=== PATIENT | male | born 1960 | race Caucasian/White ===

== ENCOUNTER 2018-11-11 18:42 | Emergency (ER) | payer MEDICAID ==
--- NOTE | 2018-11-11 19:11 | EDM.PDOC ---
ED HPI GENERAL MEDICAL PROBLEM - General Chief Complaint: Drug or Alcohol Abuse Stated Complaint: MEDICAL [facility]IA [facility] Time Seen by Provider: 11/11/18 19:00 Source of Information: Reports: Patient, EMS, Old Records History Limitations: Reports: No Limitations - History of Present Illness INITIAL COMMENTS - FREE TEXT/NARRATIVE: 58 yo male called an ambulance today for a ride to the ER so he could be cleared for detox. Has been through detox about 30 times he says. Drinks about a half a gallon of vodka daily. Drank last today. Lives alone. 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: Other (see below) (none) denies Pain Score (Numeric/FACES): 0 - Related Data Allergies Allergy/AdvReac Type Severity Reaction Status Date / Time erythromycin base AdvReac Vomiting Verified 11/11/18 19:15 lorazepam [From Ativan] AdvReac Nausea and Verified 11/11/18 19:15 Vomiting Home Meds: Home Meds Adalimumab [Humira] 40 mg SQ Q14D 09/22/14 [History] Ondansetron [Zofran] 4 mg PO Q8H PRN 09/22/14 [History] Triamcinolone Acetonide [Kenalog 0.1% Crm] 1 applic TP BID PRN 09/22/14 [History ] Cyanocobalamin (Vitamin B-12) [Vitamin B-12] 1,000 mcg SL DAILY 06/06/15 [ History] Magnesium Hydroxide [Milk of Magnesia] 30 ml PO DAILY PRN #2 ml 06/08/15 [Rx] Gabapentin [Neurontin] 800 mg PO TID 11/11/18 [History] Past Medical History HEENT History: Reports: Impaired Vision Cardiovascular History: Reports: Hypertension Other Cardiovascular History: pre-RNY Respiratory History: Reports: Pneumonia, Recurrent Genitourinary History: Reports: Renal Calculus, Other (See Below) Other Genitourinary History: vasectomy Musculoskeletal History: Reports: Arthritis, Back Pain, Chronic, Other (See Below) Other Musculoskeletal History: psoriatic Neurological History: Reports: Neuropathy, Diabetic Psychiatric History: Reports: Depression Endocrine/Metabolic History: Reports: Diabetes, Type II, Vitamin D Deficiency Other Endocrine/Metabolic History: pre-RNY Hematologic History: Reports: B12 Deficiency, Folic Acid, Iron Deficiency Dermatologic History: Reports: Psoriasis - Infectious Disease History Infectious Disease History: Reports: MRSA, Mumps - Past Surgical History GI Surgical History: Reports: Bariatric Procedure, Hernia, Inguinal, Other (See Below) ED ROS GENERAL - Review of Systems Review Of Systems: See Below Constitutional: Reports: No Symptoms HEENT: Reports: No Symptoms Respiratory: Reports: No Symptoms Cardiovascular: Reports: No Symptoms GI/Abdominal: Reports: No Symptoms : Reports: No Symptoms Musculoskeletal: Reports: No Symptoms Skin: Reports: No Symptoms Neurological: Reports: Other (intoxication) Psychiatric: Reports: No Symptoms ED EXAM, GENERAL - Physical Exam Exam: See Below Exam Limited By: Intoxication General Appearance: Alert, WD/WN, No Apparent Distress Eye Exam: Bilateral Eye: Normal Inspection Ears: Normal External Exam, Normal Canal, Hearing Grossly Normal Ear Exam: Bilateral Ear: Auricle Normal, Canal Normal Nose: Normal Inspection, Normal Mucosa, No Blood Throat/Mouth: Normal Inspection, Normal Lips, Normal Oropharynx, Normal Voice, No Airway Compromise Head: Atraumatic, Normocephalic Neck: Normal Inspection Respiratory/Chest: No Respiratory Distress, Lungs Clear, Normal Breath Sounds, No Accessory Muscle Use Cardiovascular: Regular Rate, Rhythm, No Edema GI/Abdominal: Normal Bowel Sounds, Soft, Non-Tender, No Distention Back Exam: Normal Inspection. No: CVA Tenderness (R), CVA Tenderness (L) Extremities: Normal Inspection, Normal Range of Motion, Non-Tender, No Pedal Edema Neurological: Alert, Oriented, CN II-XII Intact, Normal Cognition, No Motor/ Sensory Deficits Psychiatric: Normal Affect, Normal Mood Skin Exam: Warm, Dry, Intact, Normal Color, No Rash Course - Vital Signs Last Recorded V/S: Last Vital Signs Temp 35.5 C 11/11/18 19:09 Pulse 83 11/11/18 19:09 Resp 16 11/11/18 19:09 BP 136/76 11/11/18 19:09 Pulse Ox 97 11/11/18 19:09 - Orders/Labs/Meds Labs: Laboratory Tests 11/11/18 11/11/18 Range/Units 19:04 19:32 Urine Opiates Screen Negative (NEGATIVE) Ur Oxycodone Screen Negative (NEGATIVE) Urine Methadone Screen Negative (NEGATIVE) Ur Propoxyphene Screen Negative (NEGATIVE) Ur Barbiturates Screen Negative (NEGATIVE) Ur Tricyclics Screen Presumptive positive H (NEGATIVE) Ur Phencyclidine Scrn Negative (NEGATIVE) Ur Amphetamine Screen Negative (NEGATIVE) U Methamphetamines Scrn Negative (NEGATIVE) Urine MDMA Screen Negative (NEGATIVE) U Benzodiazepines Scrn Presumptive positive H (NEGATIVE) U Cocaine Metab Screen Negative (NEGATIVE) U Marijuana (THC) Screen Presumptive positive H (NEGATIVE) Ethyl Alcohol 306 mg/dL Meds: Medications Discontinued Medications Generic Name Dose Route Start Last Admin Trade Name Freq PRN Reason Stop Dose Admin Thiamine HCl 100 mg 11/11/18 19:31 11/11/18 19:40 Vitamin B-1 PO 11/11/18 19:32 100 mg ONETIME ONE Administration Departure - Departure Time of Disposition: 20:20 Disposition: DC/Tfer to Other 70 Condition: Fair Clinical Impression: Alcohol abuse, Marijuana smoker Alcohol intoxication Qualifiers: Complication of substance-induced condition: with unspecified complication Qualified Code(s): F10.929 - Alcohol use, unspecified with intoxication, unspecified - Discharge Information *PRESCRIPTION DRUG MONITORING PROGRAM REVIEWED*: No *COPY OF PRESCRIPTION DRUG MONITORING REPORT IN PATIENT KARTHIK: No Referrals: PCP,None [Primary Care Provider] - Forms: ED Department Discharge
[2018-11-11 19:14] VITALS: BP 136/76
[2018-11-11] MEDS ORDERED: Thiamine 100 MG Tab PO ONE (19:31)
== END 2018-11-11 21:06 | disposition other institution (70) ==
LOC: JP.ED 18:42
DX: F10.129 Alcohol abuse with intoxication, unspecified (principal); Y90.8 Blood alcohol level of 240 mg/100 ml or more; F12.10 Cannabis abuse, uncomplicated; I10 Essential (primary) hypertension; E11.9 Type 2 diabetes mellitus without complications; F32.9 Major depressive disorder, single episode, unspecified; Z86.14 Personal history of Methicillin resistant Staphylococcus aureus infection; Z88.1 Allergy status to other antibiotic agents; Z88.6 Allergy status to analgesic agent; Z79.899 Other long term (current) drug therapy; Z87.442 Personal history of urinary calculi
CPT/HCPCS: 36415; 80305; 99284; A9270; G0480

== ENCOUNTER 2018-12-06 15:47 | Emergency (ER) | payer MEDICAID ==
[2018-12-06 16:03] VITALS: BP 122/87; PULSE 88
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
== END 2018-12-06 18:01 | disposition other institution (70) ==
LOC: JP.ED 15:47
DX: S40.012A Contusion of left shoulder, initial encounter (principal); F10.120 Alcohol abuse with intoxication, uncomplicated; E11.40 Type 2 diabetes mellitus with diabetic neuropathy, unspecified; I10 Essential (primary) hypertension; Z98.84 Bariatric surgery status; Z88.1 Allergy status to other antibiotic agents; Y90.8 Blood alcohol level of 240 mg/100 ml or more; Y04.0XXA Assault by unarmed brawl or fight, initial encounter
CPT/HCPCS: 36415; 80053; 80305-QW; 85025; 99284; G0480

== ENCOUNTER 2018-12-22 08:47 | Emergency (ER) | payer MEDICAID ==
[2018-12-22 09:04] VITALS: BP 163/104; PULSE 80
[2018-12-22] MEDS ORDERED: Ondansetron 4 MG Tab.DIS PO ONE (09:13)
[2018-12-22] MEDS ORDERED: Ketorolac 60 MG/2 ML SDV IM ONE (09:13)
[2018-12-22] MEDS ORDERED: Acetaminophen/oxyCODONE 325-5 MG Tab PO STA (09:14)
--- NOTE | 2018-12-22 09:19 | EDM.PDOC ---
ED HPI GENERAL MEDICAL PROBLEM - General Chief Complaint: Genitourinary Problem Stated Complaint: RIGHT FLANK PAIN Time Seen by Provider: 12/22/18 09:05 Source of Information: Reports: Patient, Old Records, RN History Limitations: Reports: No Limitations - History of Present Illness INITIAL COMMENTS - FREE TEXT/NARRATIVE: 58 yo male presents with R flank pain that began about 3 days ago. Initially the pain was intermittent, now more constant. Has some gross hematuria. No fever. Has nausea without vomiting. Took 400 mg of ibuprofen about 3 hrs ago. Walked here from his home about 3-4 blocks away. Has a pHx of kidney stones. Onset: Gradual Onset Date: 12/19/18 Duration: Day(s): (3), Waxing/Waning Location: Reports: Back (R flank) Quality: Reports: Stabbing Severity: Moderate Improves with: Reports: Medication Worsens with: Reports: Other (? stone movement) Context: Reports: Other (See HPI) Associated Symptoms: Reports: Nausea/Vomiting (no vomiting). 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 Right Lower Posterior Back Pain Score (Numeric/FACES): 8 - Related Data Allergies Allergy/AdvReac Type Severity Reaction Status Date / Time erythromycin base AdvReac Vomiting Verified 12/22/18 09:00 Home Meds: Home Meds Gabapentin [Neurontin] 800 mg PO TID 11/11/18 [History] Cyanocobalamin (Vitamin B-12) [Vitamin B-12] 1,000 mcg IM Q21D 12/09/18 [History ] Disulfiram 250 mg PO DAILY 12/09/18 [History] Ibuprofen 800 mg PO TID 12/09/18 [History] Multivitamin [Children's Chewable Vitamin] 1 tab PO BID 12/09/18 [History] Triamcinolone Acetonide [Kenalog 0.1% Crm] 1 applic TOP BID 12/09/18 [History] cloNIDine [Catapres] 0.1 mg PO BID 12/09/18 [History] predniSONE [Deltasone] 40 mg PO DAILY 12/09/18 [History] Past Medical History HEENT History: Reports: Impaired Vision Cardiovascular History: Reports: Hypertension Other Cardiovascular History: pre-RNY Respiratory History: Reports: Pneumonia, Recurrent Genitourinary History: Reports: Renal Calculus, Other (See Below) Other Genitourinary History: vasectomy Musculoskeletal History: Reports: Arthritis, Back Pain, Chronic, Other (See Below) Other Musculoskeletal History: psoriatic Neurological History: Reports: Neuropathy, Diabetic Psychiatric History: Reports: Addiction, Depression Endocrine/Metabolic History: Reports: Diabetes, Type II, Vitamin D Deficiency Other Endocrine/Metabolic History: pre-RNY Hematologic History: Reports: B12 Deficiency, Folic Acid, Iron Deficiency Dermatologic History: Reports: Psoriasis - Infectious Disease History Infectious Disease History: Reports: Chicken Pox, Mumps - Past Surgical History GI Surgical History: Reports: Bariatric Procedure, Hernia, Inguinal Social & Family History - Tobacco Use Smoking Status *Q: Current Every Day Smoker Years of Tobacco use: 44 Packs/Tins Daily: 1 - Caffeine Use Caffeine Use: Reports: Coffee - Recreational Drug Use Recreational Drug Use: Yes Recreational Drug Type: Reports: Marijuana/Hashish ED ROS GENERAL - Review of Systems Review Of Systems: See Below Constitutional: Reports: No Symptoms HEENT: Reports: No Symptoms Respiratory: Reports: No Symptoms Cardiovascular: Reports: No Symptoms GI/Abdominal: Reports: Nausea. Denies: Abdominal Pain, Black Stool, Bloody Stool, Constipation, Diarrhea, Distension, Flatus, Hematemesis, Hematochezia, Vomiting : Reports: Flank Pain (right), Hematuria Musculoskeletal: Reports: No Symptoms Skin: Reports: No Symptoms Neurological: Reports: No Symptoms ED EXAM, RENAL/ - Physical Exam Exam: See Below Exam Limited By: No Limitations General Appearance: Alert, WD/WN, No Apparent Distress Eye Exam: Bilateral Eye: Normal Inspection Ears: Normal External Exam, Normal Canal, Hearing Grossly Normal Nose: Normal Inspection, No Blood Throat/Mouth: Normal Inspection, Normal Lips, Normal Oropharynx, Normal Voice, No Airway Compromise Head: Atraumatic, Normocephalic Neck: Normal Inspection Respiratory/Chest: No Respiratory Distress, Lungs Clear, Normal Breath Sounds, No Accessory Muscle Use Cardiovascular: Regular Rate, Rhythm, No Edema GI/Abdominal: Normal Bowel Sounds, Soft, Non-Tender, No Distention Back Exam: Normal Inspection. No: CVA Tenderness (R), CVA Tenderness (L) Extremities: Normal Inspection, Normal Range of Motion, Non-Tender, No Pedal Edema Neurological: Alert, Oriented, CN II-XII Intact, Normal Cognition, No Motor/ Sensory Deficits Psychiatric: Normal Affect, Normal Mood Skin Exam: Warm, Dry, Intact, Normal Color, No Rash Course - Vital Signs Last Recorded V/S: Last Vital Signs Temp 36.7 C 12/22/18 09:12 Pulse 80 12/22/18 09:12 Resp 18 12/22/18 09:12 BP 163/104 H 12/22/18 09:12 Pulse Ox 99 12/22/18 09:12 - Orders/Labs/Meds Orders: Active Orders 24 hr Category Date Time Status Tamsulosin [Flomax] Med 12/22/18 09:53 Once 0.4 mg PO ONETIME ONE Medication Orders Tamsulosin HCl (Flomax) 0.4 mg PO ONETIME ONE Stop: 12/22/18 09:54 Labs: Laboratory Tests 12/22/18 Range/Units 09:03 Urine Color Red A (YELLOW) Urine Appearance Turbid A (CLEAR) Urine pH 5.5 (5.0-8.0) Ur Specific [place] 1.030 (1.008-1.030) Urine Protein >=300 H (NEGATIVE) mg/dL Urine Glucose (UA) Normal (NEGATIVE) mg/dL Urine Ketones Trace H (NEGATIVE) mg/dL Urine Occult Blood Large (NEGATIVE) Urine Nitrite Positive H (NEGATIVE) Urine Bilirubin Moderate H (NEGATIVE) Urine Urobilinogen 1 (0.2-1.0) EU/dL Ur Leukocyte Esterase Negative (NEGATIVE) Urine RBC 50-75 H (0-5) Urine WBC 0-5 (0-5) Ur Epithelial Cells Not seen Amorphous Sediment Not seen Urine Bacteria Many Urine Mucus Not seen Meds: Medications Generic Name Dose Route Start Last Admin Trade Name Freq PRN Reason Stop Dose Admin Tamsulosin HCl 0.4 mg 12/22/18 09:53 Flomax PO 12/22/18 09:54 ONETIME ONE Discontinued Medications Generic Name Dose Route Start Last Admin Trade Name Freq PRN Reason Stop Dose Admin Ketorolac Tromethamine 60 mg 12/22/18 09:13 12/22/18 09:22 Toradol IM 12/22/18 09:14 60 mg ONETIME ONE Administration Ondansetron HCl 4 mg 12/22/18 09:13 12/22/18 09:22 Zofran Odt PO 12/22/18 09:14 4 mg ONETIME ONE Administration Oxycodone/Acetaminophen 1 tab 12/22/18 09:14 12/22/18 09:22 Percocet 325-5 Mg PO 12/22/18 09:15 1 tab ONETIME STA Administration - Re-Assessments/Exams Free Text/Narrative Re-Assessment/Exam: 12/22/18 09:53 Feeling better after his medications. Departure - Departure Time of Disposition: 10:15 Disposition: Home, Self-Care 01 Condition: Fair Clinical Impression: Ureterolithiasis, Gross hematuria - Discharge Information *PRESCRIPTION DRUG MONITORING PROGRAM REVIEWED*: No *COPY OF PRESCRIPTION DRUG MONITORING REPORT IN PATIENT KARTHIK: No Instructions: Kidney Stones, [id number] Referrals: Ketty Khan MD [Primary Care Provider] - Forms: ED Department Discharge Additional Instructions: Drink ample fluids. Strain your urine and save any sediment. Recheck with your provider tomorrow afternoon, call for an appt. Take ibuprofen 600 mg every 6 hrs with food for pain relief, next dose at 3:30 pm today. Add either acetaminophen 1000 mg every 6 hrs OR Percocet for additional pain relief as needed. Take Flomax once daily until you pass the stone. - My Orders Last 24 Hours: My Active Orders 12/22/18 09:53 Tamsulosin [Flomax] 0.4 mg PO ONETIME ONE - Assessment/Plan Last 24 Hours: My Active Orders 12/22/18 09:53 Tamsulosin [Flomax] 0.4 mg PO ONETIME ONE
[2018-12-22] MEDS ORDERED: Tamsulosin 0.4 MG Cap.ER PO ONE (09:53)
== END 2018-12-22 10:18 | disposition home or self-care (01) ==
LOC: JP.ED 08:47
DX: N20.1 Calculus of ureter (principal); I10 Essential (primary) hypertension; E11.9 Type 2 diabetes mellitus without complications; F17.210 Nicotine dependence, cigarettes, uncomplicated; Z88.1 Allergy status to other antibiotic agents; Z79.899 Other long term (current) drug therapy
CPT/HCPCS: 81001; 96372; 99284; A9270; J1885

== ENCOUNTER 2020-02-06 21:49 | Emergency (ER) | payer MEDICAID ==
[~2020-02-06 21:49] MED LIST: Metoprolol Tartrate 25 MG Tab PO SCH
[2020-02-06] MEDS ORDERED: Adenosine 6 MG/2 ML SDV ONE ×2 (22:04)
[2020-02-06] MEDS ORDERED: Sodium Chloride 0.9% 10 ML Syringe FLUSH PRN (22:14)
--- NOTE | 2020-02-06 22:18 | EDM.PDOC ---
ED HPI GENERAL MEDICAL PROBLEM - General Chief Complaint: Chest Pain Stated Complaint: RAPID HEART RATE Time Seen by Provider: 02/06/20 22:13 Source of Information: Reports: Patient, RN Notes Reviewed History Limitations: Reports: No Limitations - History of Present Illness INITIAL COMMENTS - FREE TEXT/NARRATIVE: 59-year-old gentleman presents emergency department a complaint of palpitations and chest pressure, he states about 45 minutes ago this came on suddenly he has no history of funny rhythms does have a history of aortic stenosis as well as a history of hypertension no history of coronary artery disease in the family - Related Data Allergies Allergy/AdvReac Type Severity Reaction Status Date / Time erythromycin base AdvReac Vomiting Verified 02/06/20 22:31 Home Meds: Home Meds ARIPiprazole [Abilify] 5 mg PO DAILY 02/06/20 [History] Amitriptyline [Elavil] 25 mg PO BEDTIME 02/06/20 [History] Celecoxib [CeleBREX] 200 mg PO BID 02/06/20 [History] Cyanocobalamin (Vitamin B-12) [Vitamin B-12] 1,000 mcg PO DAILY 02/06/20 [History] Lisinopril/Hydrochlorothiazide [Lisinopril-Hctz 10-12.5 mg Tab] 1 tab PO BEDTIME 02/06/20 [History] Metoprolol Tartrate 25 mg PO BID #30 tablet 02/06/20 [Rx] Pregabalin [Lyrica] 150 mg PO TID 02/06/20 [History] Past Medical History HEENT History: Reports: Impaired Vision Cardiovascular History: Reports: Hypertension Other Cardiovascular History: pre-RNY Respiratory History: Reports: Pneumonia, Recurrent Genitourinary History: Reports: Renal Calculus, Other (See Below) Other Genitourinary History: vasectomy Musculoskeletal History: Reports: Arthritis, Back Pain, Chronic, Other (See Below) Other Musculoskeletal History: psoriatic Neurological History: Reports: Neuropathy, Diabetic Psychiatric History: Reports: Addiction, Depression Endocrine/Metabolic History: Reports: Diabetes, Type II, Vitamin D Deficiency Other Endocrine/Metabolic History: pre-RNY Hematologic History: Reports: B12 Deficiency, Folic Acid, Iron Deficiency Dermatologic History: Reports: Psoriasis - Infectious Disease History Infectious Disease History: Reports: Chicken Pox, Mumps - Past Surgical History GI Surgical History: Reports: Bariatric Procedure, Hernia, Inguinal Social & Family History - Tobacco Use Tobacco Use Status *Q: Current Every Day Tobacco User Years of Tobacco use: 45 Packs/Tins Daily: 1 Used Tobacco, but Quit: No Second Hand Smoke Exposure: Yes - Caffeine Use Caffeine Use: Reports: Coffee - Recreational Drug Use Recreational Drug Use: Yes Drug Use in Last 12 Months: Yes Recreational Drug Type: Reports: Marijuana/Hashish, Methamphetamine Recreational Drug Use Frequency: Daily ED ROS GENERAL - Review of Systems Review Of Systems: See Below Constitutional: Reports: No Symptoms HEENT: Reports: No Symptoms Respiratory: Reports: No Symptoms Cardiovascular: Reports: Chest Pain, Palpitations GI/Abdominal: Reports: No Symptoms ED EXAM, GENERAL - Physical Exam Exam: See Below Free Text/Narrative:: Initially presented to the ED heart rate was well over 200 consistent with an SVT type picture narrow complex monomorphic rhythm 2 IVs were placed did attempt to do carotid massage attempted Valsalva maneuver with out any deflection in rate, subsequent 1 to 6 mg adenosine which then dropped his heart rate to the 80s sinus rhythm, exam was performed after that Exam Limited By: No Limitations General Appearance: Alert, Mild Distress Respiratory/Chest: No Respiratory Distress, Lungs Clear, Normal Breath Sounds, No Accessory Muscle Use, Chest Non-Tender Cardiovascular: Regular Rate, Rhythm, No Murmur GI/Abdominal: Soft, Non-Tender Course - Vital Signs Last Recorded V/S: Last Vital Signs Temp 95.5 F L 02/06/20 22:15 Pulse 206 H 02/06/20 22:15 Resp 24 H 02/06/20 22:15 BP 112/88 02/06/20 22:15 Pulse Ox 100 02/06/20 22:15 - Orders/Labs/Meds Orders: Active Orders 24 hr Category Date Time Status Cardiac Monitoring [RC] .As Directed Care 02/06/20 22:14 Active EKG Documentation Completion [RC] ASDIRECTED Care 02/06/20 22:15 Active EKG Documentation Completion [RC] ASDIRECTED Care 02/06/20 22:15 Active Peripheral IV Care [RC] . DIRECTED Care 02/06/20 22:15 Active Chest 1V Frontal [CR] Stat Exams 02/06/20 22:15 Taken Sodium Chloride 0.9% [Saline Flush] Med 02/06/20 22:14 Active 10 ml FLUSH ASDIRECTED PRN Peripheral IV Insertion Adult [OM.PC] Stat Oth 02/06/20 22:14 Ordered Saline Lock Insert [OM.PC] Stat Oth 02/06/20 22:14 Ordered EKG 12 Lead [EK] Stat Ther 02/06/20 22:15 Ordered EKG 12 Lead [EK] Stat Ther 02/06/20 22:15 Ordered Medication Orders Sodium Chloride (Saline Flush) 10 ml FLUSH ASDIRECTED PRN PRN Reason: Keep Vein Open Last Admin: 02/06/20 22:25 Dose: 10 ml Documented by: ИРИНА Labs: Laboratory Tests 02/06/20 02/06/20 02/06/20 Range/Units 22:14 22:14 22:14 WBC 7.9 (4.5-11.0) K/uL RBC 4.81 (4.30-5.90) M/uL Hgb 12.2 (12.0-15.0) g/dL Hct 39.3 L (40.0-54.0) % MCV 82 (80-98) fL MCH 25 L (27-31) pg MCHC 31 L (32-36) % Plt Count 230 (150-400) K/uL Neut % (Auto) 61 (36-66) % Lymph % (Auto) 25 (24-44) % Letcher % (Auto) 10 H (2-6) % Eos % (Auto) 4 (2-4) % Baso % (Auto) 1 (0-1) % Sodium 140 (140-148) mmol/L Potassium 4.2 (3.6-5.2) mmol/L Chloride 105 (100-108) mmol/L Carbon Dioxide 26 (21-32) mmol/L Anion Gap 8.8 (5.0-14.0) mmol/L BUN 22 H D (7-18) mg/dL Creatinine 1.0 (0.8-1.3) mg/dL Est Cr Clr Drug Dosing 84.15 mL/min Estimated GFR (MDRD) > 60 (>60) Glucose 51 L (74-106) mg/dL Lactic Acid 1.3 (0.4-2.0) mmol/L Calcium 9.0 (8.5-10.1) mg/dL Phosphorus 2.8 (2.5-4.9) mg/dL Magnesium 2.1 (1.8-2.4) mg/dL Total Bilirubin 0.2 (0.2-1.0) mg/dL AST 21 (15-37) U/L ALT 31 D (12-78) U/L Alkaline Phosphatase 123 H (46-116) U/L Troponin I < 0.017 (0.000-0.056) ng/mL Total Protein 7.3 (6.4-8.2) g/dL Albumin 3.4 (3.4-5.0) g/dL Globulin 3.9 H (2.3-3.5) g/dL Albumin/Globulin Ratio 0.9 L (1.2-2.2) TSH, Ultra Sensitive 2.311 (0.358-3.740) uIU/mL Meds: Medications Generic Name Dose Route Start Last Admin Trade Name Freq PRN Reason Stop Dose Admin Sodium Chloride 10 ml 02/06/20 22:14 02/06/20 22:25 Saline Flush FLUSH 10 ml ASDIRECTED PRN Administration Keep Vein Open Discontinued Medications Generic Name Dose Route Start Last Admin Trade Name Freq PRN Reason Stop Dose Admin Adenosine Confirm 02/06/20 22:04 02/06/20 22:24 Adenocard Administered 02/06/20 22:05 Not Given Dose 6 mg .ROUTE .STK-MED ONE Adenosine Confirm 02/06/20 22:04 02/06/20 22:24 Adenocard Administered 02/06/20 22:05 Not Given Dose 12 mg .ROUTE .STK-MED ONE Adenosine 6 mg 02/06/20 22:23 02/06/20 22:24 Adenocard IVPUSH 02/06/20 22:24 6 mg NOW ONE Administration Adenosine 12 mg 02/06/20 22:23 Adenocard IVPUSH 02/06/20 22:24 NOW ONE Metoprolol Tartrate 25 mg 02/06/20 23:26 Lopressor PO 02/06/20 23:27 ONETIME ONE Departure - Departure Time of Disposition: 23:29 Disposition: Home, Self-Care 01 Condition: Fair Clinical Impression: SVT (supraventricular tachycardia) Prescriptions: Metoprolol Tartrate 25 mg PO BID #30 tablet Instructions: Supraventricular Tachycardia, Adult Referrals: Viktoriya Lindsay DO [Primary Care Provider] - Forms: ED Department Discharge Additional Instructions: Start the metoprolol tomorrow 1 tablet twice a day please follow-up with your primary care next week for further evaluation Sepsis Event Note (ED) - Evaluation Sepsis Screening Result: No Definite Risk - Focused Exam Vital Signs: Vital Signs Temp Pulse Resp BP Pulse Ox 02/06/20 22:15 95.5 F L 206 H 24 H 112/88 100 02/06/20 21:58 95.5 F L 206 H 24 H 112/88 100 - My Orders Last 24 Hours: My Active Orders 02/06/20 22:14 Cardiac Monitoring [RC] .As Directed Sodium Chloride 0.9% [Saline Flush] 10 ml FLUSH ASDIRECTED PRN Peripheral IV Insertion Adult [OM.PC] Stat Saline Lock Insert [OM.PC] Stat 02/06/20 22:15 EKG Documentation Completion [RC] ASDIRECTED EKG Documentation Completion [RC] ASDIRECTED Peripheral IV Care [RC] . DIRECTED Chest 1V Frontal [CR] Stat EKG 12 Lead [EK] Stat EKG 12 Lead [EK] Stat - Assessment/Plan Last 24 Hours: My Active Orders 02/06/20 22:14 Cardiac Monitoring [RC] .As Directed Sodium Chloride 0.9% [Saline Flush] 10 ml FLUSH ASDIRECTED PRN Peripheral IV Insertion Adult [OM.PC] Stat Saline Lock Insert [OM.PC] Stat 02/06/20 22:15 EKG Documentation Completion [RC] ASDIRECTED EKG Documentation Completion [RC] ASDIRECTED Peripheral IV Care [RC] . DIRECTED Chest 1V Frontal [CR] Stat EKG 12 Lead [EK] Stat EKG 12 Lead [EK] Stat Plan: Assessment Acuity = acute Site and laterality = SVT Etiology = unknown Manifestations = none Location of injury = Home Lab values = CBC, CMP unremarkable thyroid within normal limits troponin is negative EKG initially demonstrated supraventricular tachycardia after conversion EKG demonstrates sinus rhythm Plan Plan is to start metoprolol 25 mg p.o. twice daily he will follow-up with his [facility] care next week for further evaluation This note was dictated using [employer] voice recognition software please call with any questions on syntax or grammar.
[2020-02-06] MEDS ORDERED: Adenosine 6 MG/2 ML SDV IVPUSH ONE ×2 (22:23)
[2020-02-06] MEDS ORDERED: Metoprolol Tartrate 25 MG Tab PO ONE (23:26)
[2020-02-06 23:45] VITALS: BP 104/74; PULSE 86
[2020-02-06] MEDS ORDERED: Metoprolol Tartrate 25 MG Tab ONE (23:54)
--- NOTE | 2020-02-08 09:47 | CR ---
CHEST: Portable 02/06/2020 at 10:59 PM CLINICAL HISTORY:Chest pain COMPARISON:None FINDINGS: The heart size, pulmonary vascularity and hilar structures are normal. No infiltrate effusion or pneumothorax is seen. IMPRESSION: No acute cardiopulmonary process.
== END 2020-02-06 23:58 | disposition home or self-care (01) ==
LOC: JP.ED 21:49
DX: I47.1 Supraventricular tachycardia (principal); I10 Essential (primary) hypertension; E11.40 Type 2 diabetes mellitus with diabetic neuropathy, unspecified; F32.9 Major depressive disorder, single episode, unspecified; F17.210 Nicotine dependence, cigarettes, uncomplicated; Z88.1 Allergy status to other antibiotic agents; Z79.899 Other long term (current) drug therapy
CPT/HCPCS: 36415; 71045; 80053; 83605; 83735; 84100; 84443; 84484; 85025; 93005; 93010; 96374; 99285; A9270; J0153

== ENCOUNTER 2020-03-03 06:47 | Day surgery (SDC) | payer MEDICAID ==
[2020-03-03] MEDS ORDERED: fentaNYL 100 MCG/2 ML SDV ONE (07:29)
[2020-03-03] MEDS ORDERED: Propofol 200 MG/20 ML SDV ONE (07:29)
[2020-03-03] MEDS ORDERED: Midazolam 1 MG/ML 2 ML SDV ONE (07:29)
[2020-03-03] MEDS ORDERED: Metoprolol Succinate 25 MG Tab.ER PO ONE (07:30)
[2020-03-03] MEDS ORDERED: Dextrose 5%-Lactated Ringers 1,000 ML IV SCH (08:00)
[2020-03-03 09:10] VITALS: PULSE 73
[2020-03-03 09:13] VITALS: BP 105/80
--- NOTE | 2020-03-09 14:39 | OR ---
DATE OF PROCEDURE: 03/03/2020 SURGEON: Thong Coronado MD PREOPERATIVE DIAGNOSIS: History of recent rectal bleeding. POSTOPERATIVE DIAGNOSIS: History of rectal bleeding, likely associated with excoriated hemorrhoids. OPERATIVE PROCEDURE: Flexible colonoscopy. ANESTHESIA: IV sedation. INDICATIONS FOR PROCEDURE: A 59-year-old presenting with some episodes of bright red rectal bleeding. He has not had any for the last 2 or 3 days. Plan is to proceed with a flexible colonoscopy with biopsies and/or polypectomy as indicated. Potential risks including bleeding and perforation were discussed, and the patient wishes to proceed. DETAILS OF PROCEDURE: The patient was taken to the operating room and placed in a left lateral decubitus position. IV sedation was administered, after which the digital rectal exam was performed and it was unremarkable. Colonoscope was then placed into the rectum. Retroflexion view, quite extremely excoriated hemorrhoids. There was no bleeding or blood seen, but these would likely account for the patient's recent bleeding. The colonoscope was then passed up into the level of the cecum. The prep was fairly good with some liquid stool present, but vast majority of the surface was adequately visualized. To that level, no additional abnormalities were noted. Specifically, there were no diverticula. No areas of colitis. No polyps or other signs of neoplasia. No blood or bleeding. Scope was then withdrawn and the above findings reconfirmed, and the procedure was then concluded. Recommendation would be to have the patient follow up on a p.r.n. basis if he develops persistent bleeding, and at that point, we would consider hemorrhoid banding. Otherwise, he has not had any personal or family history of colonic neoplasia, so a followup colonoscopy could be considered in 10 years. Thong Coronado MD /[id number]
== END 2020-03-03 09:23 | disposition home or self-care (01) ==
LOC: JP.SDS 06:47
PROVIDERS: ATTEND Surgery
DX: K64.9 Unspecified hemorrhoids (principal); J44.9 Chronic obstructive pulmonary disease, unspecified; F17.200 Nicotine dependence, unspecified, uncomplicated; I10 Essential (primary) hypertension; K62.5 Hemorrhage of anus and rectum
CPT/HCPCS: 45378; A9270; J2250; J2704; J3010; J7121

== ENCOUNTER 2021-02-19 06:50 | Emergency (ER) | payer MEDICAID ==
[2021-02-19 07:57] VITALS: BP 149/94; PULSE 94
--- NOTE | 2021-02-19 08:33 | EDM.PDOC ---
ED HPI GENERAL MEDICAL PROBLEM - General Chief Complaint: Respiratory Problem Stated Complaint: COVID SYMPTOMS Time Seen by Provider: 02/19/21 08:28 Source of Information: Reports: Patient, RN Notes Reviewed History Limitations: Reports: No Limitations - History of Present Illness INITIAL COMMENTS - FREE TEXT/NARRATIVE: 60-year-old gentleman presents emergency department day complaint of body aches cough and fever, he states he has been ill for a little over a week initially felt pretty good and then over the last couple of days it got significantly worse with the shortness of breath cough. States he is having abdominal pain is coughed so hard. - Related Data Allergies Allergy/AdvReac Type Severity Reaction Status Date / Time erythromycin base AdvReac Vomiting Verified 02/19/21 07:54 Home Meds: Home Meds ARIPiprazole [Abilify] 5 mg PO DAILY 02/06/20 [History] Amitriptyline [Elavil] 25 mg PO BEDTIME 02/06/20 [History] Celecoxib [CeleBREX] 200 mg PO BID 02/06/20 [History] Lisinopril/Hydrochlorothiazide [Lisinopril-Hctz 10-12.5 mg Tab] 1 tab PO BEDTIME 02/06/20 [History] Metoprolol Tartrate 25 mg PO BID #30 tablet 02/06/20 [Rx] Pregabalin [Lyrica] 150 mg PO TID 02/06/20 [History] Clobetasol [Clobetasol 0.05%] 1 dose TOP BID 03/01/20 [History] Sildenafil [Viagra] 50 mg PO ASDIRECTED PRN 03/01/20 [History] Apremilast [Otezla] 30 mg PO BID 02/19/21 [History] Past Medical History HEENT History: Reports: Impaired Vision Cardiovascular History: Reports: Arrhythmia, Hypertension Other Cardiovascular History: pre-RNY Respiratory History: Reports: Pneumonia, Recurrent Gastrointestinal History: Reports: None Genitourinary History: Reports: Renal Calculus, Other (See Below) Other Genitourinary History: vasectomy Musculoskeletal History: Reports: Arthritis, Back Pain, Chronic, Other (See Below) Other Musculoskeletal History: psoriatic Neurological History: Reports: Neuropathy, Diabetic Other Neuro History: herniated L4 and L5 Psychiatric History: Reports: Addiction, Depression Other Psychiatric History: ETOH Endocrine/Metabolic History: Reports: Diabetes, Type II, Vitamin D Deficiency Other Endocrine/Metabolic History: pre-RNY Hematologic History: Reports: B12 Deficiency, Folic Acid, Iron Deficiency Dermatologic History: Reports: Psoriasis - Infectious Disease History Infectious Disease History: Reports: Chicken Pox, Mumps - Past Surgical History HEENT Surgical History: Reports: None Cardiovascular Surgical History: Reports: None Respiratory Surgical History: Reports: None GI Surgical History: Reports: Bariatric Procedure, Hernia, Inguinal Other GI Surgeries/Procedures: Removal of infected mesh after hernia repair; RNY in 2011 Male Surgical History: Reports: Vasectomy Endocrine Surgical History: Reports: None Neurological Surgical History: Reports: None Musculoskeletal Surgical History: Reports: None Dermatological Surgical History: Reports: None Social & Family History - Family History Family Medical History: No Pertinent Family History - Tobacco Use Tobacco Use Status *Q: Current Every Day Tobacco User Years of Tobacco use: 40 Packs/Tins Daily: 0.5 - Caffeine Use Caffeine Use: Reports: Coffee - Recreational Drug Use Recreational Drug Use: No ED ROS GENERAL - Review of Systems Review Of Systems: See Below Constitutional: Reports: Fever, Chills, Weakness, Fatigue HEENT: Reports: No Symptoms Respiratory: Reports: Shortness of Breath, Cough Cardiovascular: Reports: Dyspnea on Exertion ED EXAM, GENERAL - Physical Exam Exam: See Below Exam Limited By: No Limitations General Appearance: Alert, WD/WN, No Apparent Distress Respiratory/Chest: No Respiratory Distress, No Accessory Muscle Use, Chest Non- Tender, Wheezing Cardiovascular: Regular Rate, Rhythm, No Murmur Course - Vital Signs Last Recorded V/S: Last Vital Signs Temp 97.9 F 02/19/21 07:57 Pulse 94 02/19/21 07:57 Resp 14 02/19/21 07:57 BP 149/94 H 02/19/21 07:57 Pulse Ox 99 02/19/21 07:57 - Orders/Labs/Meds Labs: Laboratory Tests 02/19/21 Range/Units 07:58 SARS CoV-2 RNA Rapid TERRI Positive H Departure - Departure Time of Disposition: 08:33 Disposition: Home, Self-Care 01 Condition: Fair Clinical Impression: COVID-19 - Discharge Information Instructions: 10 Things You Can Do to Manage Your COVID-19 Symptoms at Home - [facility] (10/07/2020) Referrals: PCP,Unknown [Primary Care Provider] - Additional Instructions: Continue with symptomatic care, please followup with your primary care provider in 10 to 15 days days if not better, please call return to the emergency department with worsening of symptoms. Sepsis Event Note (ED) - Evaluation Sepsis Screening Result: No Definite Risk - Focused Exam Vital Signs: Vital Signs Temp Pulse Resp BP Pulse Ox 02/19/21 07:57 97.9 F 94 14 149/94 H 99 - Assessment/Plan Plan: Assessment Acuity = acute Site and laterality = viral syndrome Etiology = COVID-19 Manifestations = cough Location of injury = Home Lab values = COVID-19 positive Plan Because he is on day 10 therefore he is a candidate for the monoclonal antibody therapy this was ordered we will try and get this done today This note was dictated using [employer] voice recognition software please call with any questions on syntax or grammar.
[2021-02-19] MEDS ORDERED: methylPREDNISolone Sodium Succinate 125 MG/2 ML SDV IVPUSH PRN (09:15)
[2021-02-19] MEDS ORDERED: Acetaminophen 325 MG Tab PO PRN (09:15)
[2021-02-19] MEDS ORDERED: Famotidine 20 MG/2 ML SDV IV PRN (09:15)
[2021-02-19] MEDS ORDERED: diphenhydrAMINE 50 MG/ML SDV IVPUSH PRN (09:15)
[2021-02-19] MEDS ORDERED: EPINEPHrine 1 MG/ML SDV IM PRN (09:15)
== END 2021-02-19 09:24 | disposition home or self-care (01) ==
LOC: JP.ED 06:50
DX: U07.1 COVID-19 (principal); I10 Essential (primary) hypertension; M19.90 Unspecified osteoarthritis, unspecified site; E11.40 Type 2 diabetes mellitus with diabetic neuropathy, unspecified; Z72.0 Tobacco use; Z88.1 Allergy status to other antibiotic agents; Z79.899 Other long term (current) drug therapy
CPT/HCPCS: 99283; U0002